=== PATIENT | female | born 1955 | race Two or more races ===

== ENCOUNTER 2019-12-26 05:15 | Day surgery (SDC) | payer OTHER ==
[~2019-12-26 05:15] MED LIST: ALTACE5 MG PO; CRESTOR20 MG PO; LEVOTHYROXINE25 MCG PO
[2019-12-26] MEDS ORDERED: PERCOCET 5-3251 EACH PO (13:22)
== END 2019-12-26 16:20 | disposition home or self-care (01) ==
LOC: CIR.AMB 05:15 → ADM 13:15 → CIR.AMB 13:15
PROVIDERS: ATTEND Surgery
DX: D35.1 Benign neoplasm of parathyroid gland (principal); Z20.828 Contact with and (suspected) exposure to other viral communicable diseases